=== PATIENT | female | born 1975 | race Caucasian/White ===

== ENCOUNTER 2017-12-15 10:38 | Emergency (ER) | payer OTHER, SELFPAY ==
[2017-12-15 10:43] VITALS: BP 121/77; PULSE 99; RESP 18; TEMP 36.9; O2SAT 99
[2017-12-15] MEDS: MAGNESIUM SULFATE 2 GM/50 ML PIGGYBACK IV (12:01)
[2017-12-15] MEDS: PROCHLORPERAZINE 10 MG/2 ML VIAL IV (12:01)
[2017-12-15] MEDS: SODIUM CHLORIDE 0.9% 1,000 ML 1000 ML IV (12:02)
[2017-12-15] MEDS: diphenhydrAMINE 50 MG/ML VIAL 25 MG IV ×2 (12:02→13:44)
[2017-12-15] MEDS: KETOROLAC 60 MG/2 ML VIAL 15 MG IV (12:02)
[2017-12-15] MEDS: DEXAMETHASONE 10 MG in SODIUM CHLORIDE 0.9% 50 ML 204 ML IV (12:13)
[2017-12-15] MEDS: HALOPERIDOL 5 MG/ML VIAL 2.5 MG IV (13:44)
[2017-12-15 13:55] VITALS: BP 105/54; PULSE 77; RESP 16; O2SAT 99
--- NOTE | 2017-12-15 15:02 | ED_ITS ---
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 Currently under the care of a PCP. * Denies changes in vision or hearing, fevers, neck stiffness, rashes, neck pain , temporal pain, jaw pain with chewing, dental pain, minor neck trauma, chiropractic manipulation, or head trauma. * Denies anticoagulation or hypercoaguable history. * No family members with similar symptoms. Unable to identify any higher risk exposures to possible carbon monoxide. * No OCP usage, denies current or in the last 3 months. M/S/F/SocHx notable for: chronic back pain; remainder reviewed with patient and in chart. ROS: Negative constitutional, eye, cardiovascular, pulmonary, GI, , MSK, skin , neurologic, psychiatric, endocrine unless noted in the HPI. Exam Gen: Pleasant, non-toxic appearing, resting comfortably. HEENT: NC, AT, TMs clear bilaterally without effusions, erythema, or lesions, preauricular, pinna, and external canal skin without lesions. Dentition intact without visible caries. No frontal or maxillary sinus TTP. Temples without TTP bilaterally, equal 2+ temporal artery pulses. No paraspinal posterior neck pain. Resp: CTAB Card: RRR GI: NT/ND : Deferred MSK: No visible deformities, strength and tone WNL. Skin: Normal color with no visible lesions. Neuro: Gen AO x 3, no facial asymmetry, no gaze preference, no slurring of speech. CN II-III: pupils equal and reactive (4->2mm bilaterally); III, IV, : EOMI, V1-V3: sensation to touch bilaterally intact; VII: no facial asymmetry ( frown / smile); VIII: no nystagmus; X: phonation intact; XI: trapezius 5/5 bilaterally, XII: tongue midline. Psych: Mood and affect appropriate. MDM Previous chart, nursing note, and vitals reviewed. 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 DDx: migraine / tension headache, cluster headache, sentinel bleed/SAH, infection ([employer] vs AYERS secondary to non-[employer] focal infection), tumor/mass effect, hypertensive encephalopathy, glaucoma or iritis, idiopathic intracranial hypertension, cavernous sinus thrombosis, temporal arteritis. Evaluation: * Migraine / tension headache - suspect a migraine given the consistency of symptoms with prior headaches and the relative exclusion of the remainder of the differential. * Cluster - doubt cluster headache given the absence of unilateral symptoms, eye watering, swelling, or nasal congestion. * [place] bleed/SAH - Doubt given gradual onset. Given similarity of this headache with prior headaches will manage conservatively without imaging. * Infection - Given lack of rash, meningismus, or fever; doubt meningitis. Similarly the history and exam are without evidence of acute otitis media, sinusitis, dental abscesses or clinically significant dental caries. * Mass - Consider a tumor or mass to be unlikely given the lack of a gradual onset, positional component, or neurological deficits. * Hypertensive encephalopathy - BP within the brain's autoregulatory zone. * Glaucoma or iritis - As the patient is without reported vision changes, eye pain, and an occular exam without increases in pain on pupillary constriction further evaluation was not pursued. * Ideopathic Intracranial Hypertension - unlikely given the lack of visual symptoms, short duration of symptoms, lack of worsening with valsalva, or more prominent morning symptoms. * Thrombosis - given the lack of identifiable risk factors (preceding facial infection, fever, and hypercoagulability) as well as an absence of deficits on exam doubt both cavernous and venous sinus thrombosis. * Temporal Arteritis - given lack of temporally localized headache, temporal tenderness or decreased temporal artery pulse, absent history of jaw claudication or vision changes; doubt. ED Course: patient given migraine cocktail per SEP. Near complete resolution of headache. Discharge with PCP follow-up recommended. Return to care precautions provided. Impression: headache (please reference below for remainder of encounter information) Related Data Home Medications Medication Instructions Recorded Confirmed loratadine [Claritin] 10 mg PO QDAYP PRN #0 09/19/17 12/15/17 amitriptyline 25 - 75 mg PO BEDTIME 12/15/17 12/15/17 [id number]-jovfxuddoiajv-ayly 1 - 2 cap PO Q4H PRN 12/15/17 12/15/17 dextroamphetamine-amphetamine 2 cap PO QAM 12/15/17 12/15/17 gabapentin 1 - 2 cap PO TID 12/15/17 12/15/17 levothyroxine [Synthroid] 50 mcg PO DAILY 12/15/17 12/15/17 morphine 1 tab PO Q12H 12/15/17 12/15/17 morphine 15 mg PO BID PRN MDD 2 12/15/17 12/15/17 omeprazole 2 cap PO DAILY 12/15/17 12/15/17 topiramate 50 mg PO QPM 12/15/17 12/15/17 venlafaxine 150 mg PO DAILY 12/15/17 12/15/17 zolmitriptan 1 dose PO DIRECTED 12/15/17 12/15/17 Previous Rx's Medication Instructions Recorded lamotrigine 100 mg tablet 150 mg PO QAM #45 tab 12/12/17 Allergies Allergy/AdvReac Type Severity Reaction Status Date / Time No Known Drug Allergies Allergy Verified 12/15/17 11:50 PFSH Social History Smoking Status: Never smoker Exam Initial Vital Signs Initial Vital Signs: Vital Signs Temperature 98.4 F 12/15/17 10:43 Pulse Rate 99 H 12/15/17 10:43 Respiratory Rate 18 12/15/17 10:43 Blood Pressure 121/77 H 12/15/17 10:43 Pulse Oximetry 99 12/15/17 10:43 Course Orders Ordered: Discontinued Medications Dexamethasone (Decadron) 10 mg IV NOW ONE Stop: 12/15/17 11:48 Last Admin: 12/15/17 12:02 Dose: Diphenhydramine HCl (Benadryl) 25 mg IV NOW ONE Stop: 12/15/17 11:48 Last Admin: 12/15/17 12:02 Dose: 25 mg Diphenhydramine HCl (Benadryl) 25 mg IV NOW ONE Stop: 12/15/17 13:25 Last Admin: 12/15/17 13:44 Dose: 25 mg Haloperidol (Haldol) 2.5 mg IV NOW ONE Stop: 12/15/17 13:25 Last Admin: 12/15/17 13:44 Dose: 2.5 mg Sodium Chloride (Normal Saline 0.9%) 1,000 mls @ 1,000 mls/hr IV BOLUS ONE Stop: 12/15/17 12:46 Last Infusion: 12/15/17 13:31 Dose: 0 mls/hr Admin: 12/15/17 12:02 Dose: 1,000 mls/hr Magnesium Sulfate (Magnesium Sulfate) 2 gm in 50 mls @ 25 mls/hr IV NOW ONE Stop: 12/15/17 13:46 Last Infusion: 12/15/17 14:27 Dose: 0 mls/hr Infusion: 12/15/17 12:35 Dose: 25 mls/hr Infusion: 12/15/17 12:19 Dose: 0 mls/hr Admin: 12/15/17 12:01 Dose: 25 mls/hr Dexamethasone 10 mg/ Sodium (Chloride) 51 mls @ 204 mls/hr IV NOW ONE Stop: 12/15/17 12:14 Last Infusion: 12/15/17 12:30 Dose: 0 mls/hr Admin: 12/15/17 12:13 Dose: 204 mls/hr Ketorolac Tromethamine (Toradol) 15 mg IV NOW ONE Stop: 12/15/17 11:48 Last Admin: 12/15/17 12:02 Dose: 15 mg Prochlorperazine (Compazine) 10 mg IV NOW ONE Stop: 12/15/17 11:48 Last Admin: 12/15/17 12:01 Dose: 10 mg Vital Signs - 8 hr 12/15/17 10:43 12/15/17 13:55 Temperature 98.4 F Pulse Rate 99 H 77 Respiratory Rate 18 16 Blood Pressure 121/77 H Blood Pressure [Left Wrist] 105/54 L Pulse Oximetry 99 99 Discharge Plan Departure Prescriptions: No Action lamotrigine [Lamictal] 100 mg tablet 150 mg PO QAM Qty: 45 RF: 1 loratadine [Claritin] 10 MG tablet 10 mg PO QDAYP PRN (Reason: Allergy Symptoms) Qty: 0 RF: 0 venlafaxine 150 mg capsule,extended release 24hr 150 mg PO DAILY RF: 0 zolmitriptan 5 mg tablet 1 dose PO DIRECTED RF: 0 amitriptyline 25 mg tablet 25 - 75 mg PO BEDTIME RF: 0 dextroamphetamine-amphetamine 20 mg capsule,extended release 24hr 2 cap PO QAM RF: 0 levothyroxine [Synthroid] 50 mcg tablet 50 mcg PO DAILY RF: 0 gabapentin 300 mg capsule 1 - 2 cap PO TID RF: 0 morphine 15 mg tablet 15 mg PO BID MDD 2 PRN (Reason: Breakthrough Pain) RF: 0 topiramate 50 mg tablet 50 mg PO QPM RF: 0 yojswwkaxy-dhxlmlpewpiog-kcmk 50-300-40 mg capsule 1 - 2 cap PO Q4H PRN (Reason: Headache) RF: 0 morphine 30 mg tablet extended release 1 tab PO Q12H RF: 0 omeprazole 20 mg capsule,delayed release(DR/EC) 2 cap PO DAILY RF: 0
[2017-12-15 15:11] VITALS: BP 114/69; PULSE 84; RESP 16; O2SAT 100
== END 2017-12-15 15:00 | disposition home or self-care (01) ==
PROVIDERS: Emergency Provider Emergency Medicine; PCP Physician Assistant Medical
DX: R51 Headache (principal)
CPT/HCPCS: 96361; 96365; 96366; 96375; 96376; 99284; J0780; J1100; J1200; J1630; J1885

== ENCOUNTER 2018-01-21 17:13 | Emergency (ER) | payer OTHER, SELFPAY ==
--- NOTE | 2018-01-21 17:18 | ED.SKABFB ---
HPI - Skin/Abscess/Foreign Bdy <MATA David - Last Filed: 01/21/18 21:58> General Chief complaint: Skin/Abscess/Foreign Body Stated complaint: laceration to index finger of left hand Time Seen by Provider: 01/21/18 17:18 History of Present Illness HPI narrative: 42-year-old male female here for complaint of laceration to her left index finger. She was using a kitchen knife cutting up some food just prior to arrival when she accidentally caused a laceration to her left index finger. She denies any other injuries. She reports that her tetanus is up-to-date. She denies any loss of a sensation or motor function to the left index finger. Related Data Home Medications Medication Instructions Recorded Confirmed loratadine [Claritin] 10 mg PO QDAYP PRN #0 09/19/17 01/01/18 amitriptyline 25 - 75 mg PO BEDTIME 12/15/17 01/01/18 gabapentin 1 - 2 cap PO TID 12/15/17 01/01/18 levothyroxine [Synthroid] 50 mcg PO DAILY 12/15/17 01/01/18 morphine 1 tab PO Q12H 12/15/17 01/01/18 morphine 15 mg PO BID PRN MDD 2 12/15/17 01/01/18 omeprazole 2 cap PO DAILY 12/15/17 01/01/18 zolmitriptan 1 dose PO DIRECTED 12/15/17 01/01/18 Previous Rx's Medication Instructions Recorded meloxicam 7.5 mg tablet 7.5 mg PO DAILY #30 tab 12/27/17 zolmitriptan 5 mg disintegrating 5 mg PO Q2-4H PRN #10 tab 12/27/17 tablet venlafaxine ER 150 mg 150 mg PO DAILY #30 cap 01/01/18 capsule,extended release 24 hr meloxicam 7.5 mg tablet 7.5 mg PO DAILY #30 tab 01/16/18 zolmitriptan 5 mg disintegrating 5 mg PO Q2-4H PRN #10 tab 01/16/18 tablet Allergies Allergy/AdvReac Type Severity Reaction Status Date / Time No Known Drug Allergies Allergy Verified 01/21/18 17:31 Review of Systems <MATA David - Last Filed: 01/21/18 21:58> Review of Systems All systems reviewed & are unremarkable except as noted in HPI and below Constitutional Denies chills, Denies fever(s), Denies lethargy and Denies weakness Eyes Denies change in vision, Denies eye discharge, Denies irritation and Denies loss of vision ENT Ears, Nose, Mouth, and Throat: Denies change in voice, Denies neck pain and Denies sore throat Cardiovascular Denies chest pain, Denies irregular heart rhythm, Denies lightheadedness, Denies palpitations, Denies dyspnea, Denies dyspnea on exertion and Denies orthopnea Respiratory Denies cough, Denies dyspnea, Denies dyspnea on exertion and Denies wheezing Gastrointestinal Gastrointestinal: Denies abdominal pain, Denies change in bowel habits, Denies diarrhea, Denies nausea and Denies vomiting Genitourinary Denies hematuria, Denies flank pain, Denies urinary incontinence and Denies urinary urgency Musculoskeletal Denies neck pain Comments: Laceration left index finger Integumentary/Breasts Denies pruritus, Denies erythema, Denies rash and Denies wounds Neurologic Denies confusion, Denies loss of vision and Denies weakness Psychiatric Denies anxiety, Denies confusion, Denies depression, Denies homicidal ideation and Denies suicidal ideation Endocrine Denies palpitations Hematologic/Lymphatic Denies easy bruising Allergic/Immunologic Denies wheezing Exam <MATA David - Last Filed: 01/21/18 21:58> Initial Vital Signs Initial Vital Signs: Vital Signs Temperature 98.2 F 01/21/18 17:25 Pulse Rate 115 H 01/21/18 17:25 Respiratory Rate 22 01/21/18 17:25 Blood Pressure 117/75 01/21/18 17:25 Pulse Oximetry 98 01/21/18 17:25 Const General: cooperative and well developed Nutritional Appearance: well nourished Orientation: alert, awake, oriented x3 and not confused [facility] Mouth: oral mucosae normal and oropharynx normal Eyes General: appearance normal, both eyes and all related structures Eyelids: eyelids normal Conjunctivae: conjunctivae normal Sclera: sclerae normal Pupils: PERRL EOM: EOM intact bilaterally Resp Effort & Inspection: normal respiratory effort, able to speak in complete sentences, no respiratory distress and no use of accessory muscles Auscultation: clear to auscultation bilaterally, no rales, no rhonchi and no wheezes Cardio Rate: regular rate Rhythm: regular rhythm Heart Sounds: no click, no gallops, no murmurs and no rubs Pulses: normal peripheral pulses Skin General: no rashes or lesions noted, No jaundice and No petechiae Extrem Other: 1 cm laceration to the palmar aspect of the left index finger at the proximal phalanx area. Distal sensation is intact. Full range of motion. Distal cap refill less than 2 sec. <Mayte Esparza DO - Last Filed: 01/24/18 08:25> Initial Vital Signs Initial Vital Signs: Vital Signs Temperature 98.2 F 01/21/18 17:25 Pulse Rate 115 H 01/21/18 17:25 Respiratory Rate 22 01/21/18 17:25 Blood Pressure 117/75 01/21/18 17:25 Pulse Oximetry 98 01/21/18 17:25 Procedures <MATA David - Last Filed: 01/21/18 21:58> Laceration Repair Laceration 1: Site: hand (Left index finger) Side (If applicable): left Size (cm): 1 Description: linear Depth: simple, single layer Local Anesthetic: lidocaine 1% Pre-repair: wound explored Skin layer closed with: nylon Size (cm): 5-0 Number of sutures: 2 Technique: simple, interrupted Course <MATA David - Last Filed: 01/21/18 21:58> Vital Signs - 8 hr 01/21/18 17:25 01/21/18 18:23 Temperature 98.2 F Pulse Rate 115 H 104 H Respiratory Rate 22 16 Blood Pressure 117/75 111/70 Pulse Oximetry 98 97 <Mayte Esparza DO - Last Filed: 01/24/18 08:25> Vital Signs - 8 hr 01/21/18 17:25 01/21/18 18:23 Temperature 98.2 F Pulse Rate 115 H 104 H Respiratory Rate 22 16 Blood Pressure 117/75 111/70 Pulse Oximetry 98 97 MDM - Skin/Abscess/Foreign Bdy <MATA David - Last Filed: 01/21/18 21:58> MDM Narrative Medical decision making narrative: Laceration of left index finger was closed with 2 sutures patient tolerated well no complications. Sutures removed in 7 days. Wound dressed with bacitracin and a dressing. Keep wound area clean and dry for the next 24 hr after this timeframe a shower briefly after shower dress wound with bacitracin dressing. Dress wound daily with bacitracin and a dressing. Use [id number] Tylenol Motrin as needed for any discomfort. Follow up with her primary care provider. Return emergency room for any worsening symptoms. Discharge Plan Departure Patient Disposition: Home, Self-Care Clinical Impression: Laceration of left index finger Discharge Date/Time: 01/21/18 18:24 Interventions: ED Discharge Assessment Last Done: 01/21/18 18:23 Instructions: DI for Laceration Repair Activity Restrictions/Additional Instructions: Laceration of left index finger was closed with 2 sutures. Have sutures removed in 7 days. Keep wound area clean and dry for the next 24 hr after this timeframe a shower briefly after shower dress wound with bacitracin dressing. Dress wound daily with bacitracin and a dressing. Use [id number] Tylenol Motrin as needed for any discomfort. Follow up with her primary care provider. Return emergency room for any worsening symptoms. Prescriptions: No Action venlafaxine 150 mg capsule,extended release 24hr 150 mg PO DAILY Qty: 30 RF: 1 loratadine [Claritin] 10 MG tablet 10 mg PO QDAYP PRN (Reason: Allergy Symptoms) Qty: 0 RF: 0 zolmitriptan 5 mg tablet 1 dose PO DIRECTED RF: 0 amitriptyline 25 mg tablet 25 - 75 mg PO BEDTIME RF: 0 levothyroxine [Synthroid] 50 mcg tablet 50 mcg PO DAILY RF: 0 gabapentin 300 mg capsule 1 - 2 cap PO TID RF: 0 morphine 15 mg tablet 15 mg PO BID MDD 2 PRN (Reason: Breakthrough Pain) RF: 0 morphine 30 mg tablet extended release 1 tab PO Q12H RF: 0 omeprazole 20 mg capsule,delayed release(DR/EC) 2 cap PO DAILY RF: 0 meloxicam 7.5 mg tablet 7.5 mg PO DAILY Qty: 30 RF: 1 zolmitriptan [Zomig ZMT] 5 mg tablet,disintegrating 5 mg PO Q2-4H PRN (Reason: migraine headache) Qty: 10 RF: 1 zolmitriptan [Zomig ZMT] 5 mg tablet,disintegrating 5 mg PO Q2-4H PRN (Reason: migraine headache) Qty: 10 RF: 2 meloxicam 7.5 mg tablet 7.5 mg PO DAILY Qty: 30 RF: 2 Referrals: Amanda Sparrow [Primary Care Provider] - <Mayte Esparza DO - Last Filed: 01/24/18 08:25> Cosign ED Attending oRmaine Attestation: I was immediately available in the department for consultation. Documentation has been reviewed. I agree with assessment and plan.
[2018-01-21 17:25] VITALS: BP 117/75; PULSE 115; RESP 22; TEMP 36.8; O2SAT 98; BMI 24.8
--- NOTE | 2018-01-21 17:59 | ED_ITS ---
HPI - Skin/Abscess/Foreign Bdy <MATA David - Last Filed: 01/21/18 21:58> General Chief complaint: Skin/Abscess/Foreign Body Stated complaint: laceration to index finger of left hand Time Seen by Provider: 01/21/18 17:18 History of Present Illness HPI narrative: 42-year-old male female here for complaint of laceration to her left index finger. She was using a kitchen knife cutting up some food just prior to arrival when she accidentally caused a laceration to her left index finger. She denies any other injuries. She reports that her tetanus is up-to- date. She denies any loss of a sensation or motor function to the left index finger. Related Data Home Medications Medication Instructions Recorded Confirmed loratadine [Claritin] 10 mg PO QDAYP PRN #0 09/19/17 01/01/18 amitriptyline 25 - 75 mg PO BEDTIME 12/15/17 01/01/18 gabapentin 1 - 2 cap PO TID 12/15/17 01/01/18 levothyroxine [Synthroid] 50 mcg PO DAILY 12/15/17 01/01/18 morphine 1 tab PO Q12H 12/15/17 01/01/18 morphine 15 mg PO BID PRN MDD 2 12/15/17 01/01/18 omeprazole 2 cap PO DAILY 12/15/17 01/01/18 zolmitriptan 1 dose PO DIRECTED 12/15/17 01/01/18 Previous Rx's Medication Instructions Recorded meloxicam 7.5 mg tablet 7.5 mg PO DAILY #30 tab 12/27/17 zolmitriptan 5 mg disintegrating 5 mg PO Q2-4H PRN #10 tab 12/27/17 tablet venlafaxine ER 150 mg 150 mg PO DAILY #30 cap 01/01/18 capsule,extended release 24 hr meloxicam 7.5 mg tablet 7.5 mg PO DAILY #30 tab 01/16/18 zolmitriptan 5 mg disintegrating 5 mg PO Q2-4H PRN #10 tab 01/16/18 tablet Allergies Allergy/AdvReac Type Severity Reaction Status Date / Time No Known Drug Allergies Allergy Verified 01/21/18 17:31 Review of Systems <MATA David - Last Filed: 01/21/18 21:58> Review of Systems All systems reviewed & are unremarkable except as noted in HPI and below Constitutional Denies chills, Denies fever(s), Denies lethargy and Denies weakness Eyes Denies change in vision, Denies eye discharge, Denies irritation and Denies loss of vision ENT Ears, Nose, Mouth, and Throat: Denies change in voice, Denies neck pain and Denies sore throat Cardiovascular Denies chest pain, Denies irregular heart rhythm, Denies lightheadedness, Denies palpitations, Denies dyspnea, Denies dyspnea on exertion and Denies orthopnea Respiratory Denies cough, Denies dyspnea, Denies dyspnea on exertion and Denies wheezing Gastrointestinal Gastrointestinal: Denies abdominal pain, Denies change in bowel habits, Denies diarrhea, Denies nausea and Denies vomiting Genitourinary Denies hematuria, Denies flank pain, Denies urinary incontinence and Denies urinary urgency Musculoskeletal Denies neck pain Comments: Laceration left index finger Integumentary/Breasts Denies pruritus, Denies erythema, Denies rash and Denies wounds Neurologic Denies confusion, Denies loss of vision and Denies weakness Psychiatric Denies anxiety, Denies confusion, Denies depression, Denies homicidal ideation and Denies suicidal ideation Endocrine Denies palpitations Hematologic/Lymphatic Denies easy bruising Allergic/Immunologic Denies wheezing Exam <MATA David - Last Filed: 01/21/18 21:58> Initial Vital Signs Initial Vital Signs: Vital Signs Temperature 98.2 F 01/21/18 17:25 Pulse Rate 115 H 01/21/18 17:25 Respiratory Rate 22 01/21/18 17:25 Blood Pressure 117/75 01/21/18 17:25 Pulse Oximetry 98 01/21/18 17:25 Const General: cooperative and well developed Nutritional Appearance: well nourished Orientation: alert, awake, oriented x3 and not confused [facility] Mouth: oral mucosae normal and oropharynx normal Eyes General: appearance normal, both eyes and all related structures Eyelids: eyelids normal Conjunctivae: conjunctivae normal Sclera: sclerae normal Pupils: PERRL EOM: EOM intact bilaterally Resp Effort & Inspection: normal respiratory effort, able to speak in complete sentences, no respiratory distress and no use of accessory muscles Auscultation: clear to auscultation bilaterally, no rales, no rhonchi and no wheezes Cardio Rate: regular rate Rhythm: regular rhythm Heart Sounds: no click, no gallops, no murmurs and no rubs Pulses: normal peripheral pulses Skin General: no rashes or lesions noted, No jaundice and No petechiae Extrem Other: 1 cm laceration to the palmar aspect of the left index finger at the proximal phalanx area. Distal sensation is intact. Full range of motion. Distal cap refill less than 2 sec. <Mayte Esparza DO - Last Filed: 01/24/18 08:25> Initial Vital Signs Initial Vital Signs: Vital Signs Temperature 98.2 F 01/21/18 17:25 Pulse Rate 115 H 01/21/18 17:25 Respiratory Rate 22 01/21/18 17:25 Blood Pressure 117/75 01/21/18 17:25 Pulse Oximetry 98 01/21/18 17:25 Procedures <MTAA David - Last Filed: 01/21/18 21:58> Laceration Repair Laceration 1: Site: hand (Left index finger) Side (If applicable): left Size (cm): 1 Description: linear Depth: simple, single layer Local Anesthetic: lidocaine 1% Pre-repair: wound explored Skin layer closed with: nylon Size (cm): 5-0 Number of sutures: 2 Technique: simple, interrupted Course <MATA David - Last Filed: 01/21/18 21:58> Vital Signs - 8 hr 01/21/18 17:25 01/21/18 18:23 Temperature 98.2 F Pulse Rate 115 H 104 H Respiratory Rate 22 16 Blood Pressure 117/75 111/70 Pulse Oximetry 98 97 <Mayte Esparza DO - Last Filed: 01/24/18 08:25> Vital Signs - 8 hr 01/21/18 17:25 01/21/18 18:23 Temperature 98.2 F Pulse Rate 115 H 104 H Respiratory Rate 22 16 Blood Pressure 117/75 111/70 Pulse Oximetry 98 97 MDM - Skin/Abscess/Foreign Bdy <MATA David - Last Filed: 01/21/18 21:58> MDM Narrative Medical decision making narrative: Laceration of left index finger was closed with 2 sutures patient tolerated well no complications. Sutures removed in 7 days. Wound dressed with bacitracin and a dressing. Keep wound area clean and dry for the next 24 hr after this timeframe a shower briefly after shower dress wound with bacitracin dressing. Dress wound daily with bacitracin and a dressing. Use [id number] Tylenol Motrin as needed for any discomfort. Follow up with her primary care provider. Return emergency room for any worsening symptoms. Discharge Plan Departure Patient Disposition: Home, Self-Care Clinical Impression: Laceration of left index finger Discharge Date/Time: 01/21/18 18:24 Interventions: ED Discharge Assessment Last Done: 01/21/18 18:23 Instructions: DI for Laceration Repair Activity Restrictions/Additional Instructions: Laceration of left index finger was closed with 2 sutures. Have sutures removed in 7 days. Keep wound area clean and dry for the next 24 hr after this timeframe a shower briefly after shower dress wound with bacitracin dressing. Dress wound daily with bacitracin and a dressing. Use [id number] Tylenol Motrin as needed for any discomfort. Follow up with her primary care provider. Return emergency room for any worsening symptoms. Prescriptions: No Action venlafaxine 150 mg capsule,extended release 24hr 150 mg PO DAILY Qty: 30 RF: 1 loratadine [Claritin] 10 MG tablet 10 mg PO QDAYP PRN (Reason: Allergy Symptoms) Qty: 0 RF: 0 zolmitriptan 5 mg tablet 1 dose PO DIRECTED RF: 0 amitriptyline 25 mg tablet 25 - 75 mg PO BEDTIME RF: 0 levothyroxine [Synthroid] 50 mcg tablet 50 mcg PO DAILY RF: 0 gabapentin 300 mg capsule 1 - 2 cap PO TID RF: 0 morphine 15 mg tablet 15 mg PO BID MDD 2 PRN (Reason: Breakthrough Pain) RF: 0 morphine 30 mg tablet extended release 1 tab PO Q12H RF: 0 omeprazole 20 mg capsule,delayed release(DR/EC) 2 cap PO DAILY RF: 0 meloxicam 7.5 mg tablet 7.5 mg PO DAILY Qty: 30 RF: 1 zolmitriptan [Zomig ZMT] 5 mg tablet,disintegrating 5 mg PO Q2-4H PRN (Reason: migraine headache) Qty: 10 RF: 1 zolmitriptan [Zomig ZMT] 5 mg tablet,disintegrating 5 mg PO Q2-4H PRN (Reason: migraine headache) Qty: 10 RF: 2 meloxicam 7.5 mg tablet 7.5 mg PO DAILY Qty: 30 RF: 2 Referrals: Amanda Sparrow [Primary Care Provider] - <Mayte Esparza DO - Last Filed: 01/24/18 08:25> Cosign ED Attending Romaine Attestation: I was immediately available in the department for consultation. Documentation has been reviewed. I agree with assessment and plan.
[2018-01-21 18:23] VITALS: BP 111/70; PULSE 104; RESP 16; O2SAT 97
== END 2018-01-21 18:24 | disposition home or self-care (01) ==
PROVIDERS: Emergency Provider Nurse Practitioner Family; PCP Physician Assistant Medical
DX: S61.211A Laceration without foreign body of left index finger without damage to nail, initial encounter (principal); W26.0XXA Contact with knife, initial encounter
CPT/HCPCS: 12001; 99282; 99283

== ENCOUNTER 2018-01-29 09:31 | Emergency (ER) | payer OTHER, SELFPAY ==
--- NOTE | 2018-01-29 09:32 | ED.GENADULT ---
HPI - General Adult General Chief complaint: Wound/Laceration Stated complaint: needs stitches removed Time Seen by Provider: 01/29/18 09:31 Source: patient Mode of arrival: ambulatory Limitations: no limitations History of Present Illness HPI narrative: Patient is here for removal of stitches to her left index finger. She cut her hand on a knife approximately 8 days ago. Had 2 stitches placed here. Return to the emergency department have these removed. Related Data Home Medications Medication Instructions Recorded Confirmed loratadine [Claritin] 10 mg PO QDAYP PRN #0 09/19/17 01/01/18 amitriptyline 25 - 75 mg PO BEDTIME 12/15/17 01/01/18 gabapentin 1 - 2 cap PO TID 12/15/17 01/01/18 levothyroxine [Synthroid] 50 mcg PO DAILY 12/15/17 01/01/18 morphine 1 tab PO Q12H 12/15/17 01/01/18 morphine 15 mg PO BID PRN MDD 2 12/15/17 01/01/18 omeprazole 2 cap PO DAILY 12/15/17 01/01/18 zolmitriptan 1 dose PO DIRECTED 12/15/17 01/01/18 Previous Rx's Medication Instructions Recorded meloxicam 7.5 mg tablet 7.5 mg PO DAILY #30 tab 12/27/17 zolmitriptan 5 mg disintegrating 5 mg PO Q2-4H PRN #10 tab 12/27/17 tablet venlafaxine ER 150 mg 150 mg PO DAILY #30 cap 01/01/18 capsule,extended release 24 hr meloxicam 7.5 mg tablet 7.5 mg PO DAILY #30 tab 01/16/18 zolmitriptan 5 mg disintegrating 5 mg PO Q2-4H PRN #10 tab 01/16/18 tablet Allergies Allergy/AdvReac Type Severity Reaction Status Date / Time No Known Drug Allergies Allergy Verified 01/21/18 17:31 Review of Systems Integumentary/Breasts Comments: stitches in the left finger Neurologic Comments: No sensation changes to left finger Hematologic/Lymphatic Denies easy bleeding and Denies easy bruising PFSH Social History Smoking Status: Never smoker Exam Const General: cooperative, healthy appearing, comfortable, well developed, well groomed and No acute distress Orientation: alert and awake Resp Effort & Inspection: normal respiratory effort Cardio Pulses: radial pulses present on the left Skin Other: well-healing 1/2 cm laceration to the volar aspect of her left index finger just distal to the MCP with 2 stitches in placed Neuro Other: sensation intact to light touch left adnexa Extrem Other: full range of motion left index finger Medical Decision Making MDM Narrative Medical decision making narrative: 2 stitches removed left index finger without problems. Wound looks well. No signs of infection. Patient given care instructions. Discharge Plan Departure Patient Disposition: Home, Self-Care Clinical Impression: Visit for suture removal Activity Restrictions/Additional Instructions: keep the area covered with a Band-Aid. You can wash your hands like normal. Do not soak your hands and anything until the wound is completely healed. Call your primary care doctor for follow-up As needed. Prescriptions: No Action venlafaxine 150 mg capsule,extended release 24hr 150 mg PO DAILY Qty: 30 RF: 1 loratadine [Claritin] 10 MG tablet 10 mg PO QDAYP PRN (Reason: Allergy Symptoms) Qty: 0 RF: 0 zolmitriptan 5 mg tablet 1 dose PO DIRECTED RF: 0 amitriptyline 25 mg tablet 25 - 75 mg PO BEDTIME RF: 0 levothyroxine [Synthroid] 50 mcg tablet 50 mcg PO DAILY RF: 0 gabapentin 300 mg capsule 1 - 2 cap PO TID RF: 0 morphine 15 mg tablet 15 mg PO BID MDD 2 PRN (Reason: Breakthrough Pain) RF: 0 morphine 30 mg tablet extended release 1 tab PO Q12H RF: 0 omeprazole 20 mg capsule,delayed release(DR/EC) 2 cap PO DAILY RF: 0 meloxicam 7.5 mg tablet 7.5 mg PO DAILY Qty: 30 RF: 1 zolmitriptan [Zomig ZMT] 5 mg tablet,disintegrating 5 mg PO Q2-4H PRN (Reason: migraine headache) Qty: 10 RF: 1 zolmitriptan [Zomig ZMT] 5 mg tablet,disintegrating 5 mg PO Q2-4H PRN (Reason: migraine headache) Qty: 10 RF: 2 meloxicam 7.5 mg tablet 7.5 mg PO DAILY Qty: 30 RF: 2
[2018-01-29 09:40] VITALS: BP 107/70; PULSE 84; RESP 18; TEMP 36.8; O2SAT 100
== END 2018-01-29 09:47 | disposition home or self-care (01) ==
PROVIDERS: Emergency Provider Emergency Medicine; Family Provider Physician Assistant Medical; PCP Physician Assistant Medical
DX: Z48.02 Encounter for removal of sutures (principal)
CPT/HCPCS: 99283

== ENCOUNTER → 2018-08-02 09:19 | Outpatient (CLI) | payer OTHER, SELFPAY ==
[2018-08-02 10:06] LABS: Add Manual Diff / Slide Review NO; Basophils Absolute Auto 0 /uL (0-100); Basophils Percent Auto 0.5 % (0-2); Eosinophils Absolute Auto 100 /uL (0-450); Eosinophils Percent Auto 2.6 % (2-4); Hematocrit 37.3 % (36-46); Hemoglobin 12.1 g/dL (12.0-16.0); Lymphocytes Absolute Auto 2000 /uL (1100-4500); Lymphocytes Percent Auto 42.7 % (25-40); Mean Corpuscular HGB Conc 32.3 % (30-36); Mean Corpuscular Hemoglobin 28.2 PG (26-34); Mean Corpuscular Volume 87.1 fL (80-100); Monocytes Absolute Auto 400 /uL (0-900); Monocytes Percent Auto 7.6 % (3-14); Neutrophils Absolute Auto 2200 /uL (1500-7000); Neutrophils Percent Auto 46.6 % (50-75); Platelet Count 293 X10^3/uL (150-400); Red Blood Cell Count 4.29 X10^6/uL (4.0-5.2); Red Cell Distribution Width 15.8 % (11.6-14.8); White Blood Cell Count 4.6 X10^3/uL (4.5-11.0)
[2018-08-02 10:28] LABS: Alanine Aminotransferase 28 IU/L (9-52); Albumin 4.3 g/dL (3.5-5.0); Albumin Globulin Ratio 1.7 (1.0-2.8); Alkaline Phosphatase 45 U/L (38-126); Aspartate Aminotransferase 23 IU/L (14-36); BUN Creatinine Ratio 24.3 (6-22); Bilirubin Total 0.4 mg/dL (0.2-1.3); Bilirubin Unconjugated 0.2 mg/dL (0.0-1.1); Blood Urea Nitrogen 17 mg/dL (7-17); Calcium 9.4 mg/dL (8.4-10.2); Carbon Dioxide 25 mmol/L (22-32); Chloride 107 mmol/L (98-107); Cholesterol 182 mg/dL (140-199); Estimated Glomerular Filt Rate > 60.0 mL/min (>60); Globulin 2.6 g/dL (1.7-4.1); Glucose 91 mg/dL (70-100); HDL Cholesterol 58 mg/dL (40-60); HEMOLYSIS < 15 (0-50); LDL Cholesterol Calculated 111 mg/dL (<100); Potassium 3.9 mmol/L (3.4-5.1); Sodium 142 mmol/L (137-145); Total Protein 6.9 g/dL (6.3-8.2); Triglycerides 66 mg/dL (35-150)
[2018-08-02 10:49] LABS: Lithium < 0.2 mmol/L (0.6-1.2)
[2018-08-02 10:52] LABS: Free T4, Direct Thyroxine 0.89 ng/dL (0.78-2.19)
[2018-08-02 11:06] LABS: Thyroid Stimulating Hormone 1.15 uIU/mL (0.47-4.68)
== END ==
PROVIDERS: Family Provider Physician Assistant Medical; PCP Physician Assistant Medical; Visit Provider Nurse Practitioner Psychiatric/Mental Health
DX: F39 Unspecified mood [affective] disorder (principal)
CPT/HCPCS: 36415; 80053; 80061; 80076; 80178; 84439; 84443; 85025